=== PATIENT | female | born 1985 | race Caucasian/White ===

== ENCOUNTER 2020-03-30 09:30 | Outpatient (REF) | payer OTHER, SELFPAY | END 2020-03-30 09:31 | disposition home or self-care (01) | LOC: HO.LAB 09:30 | PROVIDERS: Visit Provider Internal Medicine | DX: Z20.828 Contact with and (suspected) exposure to other viral communicable diseases (principal) | CPT/HCPCS: 36415; C9803; U0003 ==

== ENCOUNTER 2020-05-06 09:23 | Outpatient (REF) | payer OTHER, SELFPAY | END 2020-05-06 09:24 | disposition home or self-care (01) | LOC: HO.LAB 09:23 | PROVIDERS: Visit Provider Internal Medicine | DX: Z20.822 Contact with and (suspected) exposure to COVID-19 (principal) | CPT/HCPCS: 36415; C9803; U0003; U0005 ==

== ENCOUNTER 2020-06-16 09:03 | Outpatient (REF) | payer OTHER, SELFPAY | END 2020-06-16 09:04 | disposition home or self-care (01) | LOC: HO.LAB 09:03 | PROVIDERS: Visit Provider Internal Medicine | DX: Z20.822 Contact with and (suspected) exposure to COVID-19 (principal) | CPT/HCPCS: 36415; C9803; U0003; U0005 ==